=== PATIENT | male | born 1990 | race Caucasian/White ===

== ENCOUNTER 2020-10-05 08:04 | Day surgery (SDC) | payer OTHER ==
[~2020-10-05] VITALS: Ht 172.7 cm; Wt 98.1 kg
[2020-10-05] MEDS ORDERED: ATARAX 25MG25 MG/TAB PO (08:17)
[2020-10-05] MEDS ORDERED: D3-5050000 IU PO (08:17)
[2020-10-05 08:29] VITALS: BP 120/87; PULSE 79; TEMP 97.7
[2020-10-05 11:00] VITALS: BP 113/66; PULSE 59; TEMP 96.9
--- NOTE | 2020-10-05 11:00 | NUR ---
PATIENT TO RECOVERY BAY 5 POST PROCEDURE VIA CART ACCOMPANIED BY Mariella JAY RN. PATIENT UP TO CHAIR AMBULATORY WITH 1 PERSON ASSIST. MADE COMFORTABLE IN CHAIR. GIVEN WARM BLANKETS. VITAL SIGNS TAKEN, WNL. REPORT FROM Mariella JAY RN. GIVEN PEPSI AND APPLE SAUCE. DENIES NAUSEA OR PAIN.
--- NOTE | 2020-10-05 11:04 | NUR ---
AT BEDSIDE TO DISCUSS FINDINGS OF PROCEDURE WITH PATIENT.
[2020-10-05 11:15] VITALS: BP 105/71; PULSE 58
--- NOTE | 2020-10-05 11:22 | NUR ---
IV SITE TO RIGHT HAND DISCONTINUED. NO REDNESS OR SWELLING. PRESSURE APPLIED AND SECURED WITH COTTON BALL AND COBAN.
--- NOTE | 2020-10-05 11:36 | NUR ---
PATIENT GIVEN HARD COPIES OF DISMISSAL INSTRUCTIONS AND PATIENT EDUCATION. VERBAL REVIEW OF EDUCATION AND DISMISSAL INSTRUCTIONS GIVEN. PATIENT GIVES VERBAL UNDERSTANDING. DENIES QUESTIONS. PATIENT SIGNS IN ACKNOWLEDGMENT OF RECEIPT.
--- NOTE | 2020-10-05 11:40 | NUR ---
PATIENT ESCORTED OFF UNIT VIA WHEELCHAIR BY Brian LORA RN TO WAITING AD[facility]URE THERAPIST. ASSISTED TO VEHICLE.
== END 2020-10-05 11:40 | disposition home or self-care (01) ==
LOC: SDCO 08:04
DX: K52.9 Noninfective gastroenteritis and colitis, unspecified (principal); T18.4XXA Foreign body in colon, initial encounter; D68.1 Hereditary factor XI deficiency; F32.9 Major depressive disorder, single episode, unspecified; Z98.0 Intestinal bypass and anastomosis status; Z20.822 Contact with and (suspected) exposure to COVID-19; Z79.899 Other long term (current) drug therapy
CPT/HCPCS: J2704; J7030

== ENCOUNTER 2022-02-08 13:26 | Emergency (ER) | payer OTHER ==
[~2022-02-08] VITALS: Ht 175.3 cm; Wt 97.7 kg
[~2022-02-08 13:26] MED LIST: ATARAX 25MG25 MG/TAB PO; D3-5050000 IU PO
[2022-02-08 13:33] VITALS: TEMP 98.9
[2022-02-08] MEDS ORDERED: ASPERCREME1 EACH TP (15:27)
[2022-02-08 15:38] VITALS: BP 114/70; PULSE 59
== END 2022-02-08 15:38 | disposition home or self-care (01) ==
LOC: COL.ER 13:26
DX: S29.9XXA Unspecified injury of thorax, initial encounter (principal); V29.3XXA Motorcycle rider (driver) (passenger) injured in unspecified nontraffic accident, initial encounter; Y92.410 Unspecified street and highway as the place of occurrence of the external cause
CPT/HCPCS: Q9967